=== PATIENT | female | born 2000 | race Caucasian/White ===

== ENCOUNTER 2022-12-01 19:48 | Emergency (ER) | payer OTHER ==
[~2022-12-01] VITALS: Ht 152.4 cm; Wt 50.7 kg
[2022-12-01 19:50] VITALS: BP 117/72; TEMP 98.8; O2SAT 98
[2022-12-01 20:54] LABS: BASO % 0.4 % (0.0-1.0); EOS # 0.1 10^3/uL (0.0-0.5); EOS % 0.9 % (0.0-3.0); HEMATOCRIT 37.9 % (36.0-47.0); HEMOGLOBIN 13.1 g/dl (12.0-15.5); LYMPH # 1.9 10^3/uL (1.5-5.0); MEAN CORPUSCULAR HEMOGLOBIN 30.5 pg (27.0-33.0); MEAN CORPUSCULAR HGB CONC 34.6 g/dl (32.0-36.5); MEAN CORPUSCULAR VOLUME 88.3 fl (80.0-96.0); MONO # 0.5 10^3/uL (0.0-0.8); MONO % 6.7 % (2.0-8.0); NEUTROPHILS % 66.7 % (36.0-66.0); PLATELET COUNT, AUTOMATED 184 10^3/uL (150-450); RED BLOOD COUNT 4.29 10^6/uL (4.00-5.40); WHITE BLOOD COUNT 7.5 10^3/uL (4.0-10.0)
[2022-12-01] MEDS ORDERED: PREN1TAB11 PO (23:00)
[2022-12-01] MEDS ORDERED: HOME MED LIST COMPLETE! XX SCH (23:25)
[2022-12-02 00:55] LABS: BACTERIA, URINE AUTO NEGATIVE (NEGATIVE); RBC, URINE AUTO 1 /HPF (0-3); SQUAMOUS EPITHELIAL CELL UR AU 7 /HPF (0-6); WBC, URINE AUTO 1 /HPF (0-3)
[2022-12-02 01:05] LABS: APPEARANCE, URINE HAZY (CLEAR); BILIRUBIN, URINE AUTO NEGATIVE (NEGATIVE); BLOOD, URINE BLOOD 1+ (NEGATIVE); COLOR, URINE YELLOW (YELLOW); GLUCOSE, URINE (UA) AUTO NEGATIVE (NEGATIVE); KETONE, URINE AUTO NEGATIVE (NEGATIVE); LEUKOCYTE ESTERASE, URINE AUTO TRACE (NEGATIVE); NITRITE, URINE AUTO NEGATIVE (NEGATIVE); PROTEIN, URINE AUTO NEGATIVE (NEGATIVE); UROBILINOGEN, URINE AUTO 0.2 mg/dL (0.0-2.0)
[2022-12-02] MEDS ORDERED: CLEO300C2 PO ×2 (01:14→02:22)
[2022-12-02 01:55] LABS: GC DNA AMPLIFICATION NEGATIVE (NEGATIVE)
[2022-12-02] MEDS ORDERED: CLINDAMYCIN 150MG CAPSULE PO ONE (02:20)
== END 2022-12-02 02:38 | disposition home or self-care (01) ==
LOC: M ED 19:48
DX: O20.0 Threatened abortion (principal); O23.591 Infection of other part of genital tract in pregnancy, first trimester; Z3A.10 10 weeks gestation of pregnancy

== ENCOUNTER 2023-05-15 22:14 | Outpatient (CLI) | payer OTHER ==
[~2023-05-15] VITALS: Ht 152.4 cm; Wt 66.0 kg
[~2023-05-15 22:14] MED LIST: CLEO300C2 PO; PREN1TAB11 PO
[2023-05-15 22:33] VITALS: BP 121/65
== END 2023-05-15 23:47 | disposition home or self-care (01) ==
LOC: M LDO 22:14
PROVIDERS: ATTEND Obstetrics & Gynecology
DX: O36.8130 Decreased fetal movements, third trimester, not applicable or unspecified (principal); Z3A.33 33 weeks gestation of pregnancy
CPT/HCPCS: 59025; G0463

== ENCOUNTER 2023-06-23 02:04 | Inpatient (IN) | payer OTHER ==
[~2023-06-23] VITALS: Ht 152.4 cm; Wt 69.4 kg
[2023-06-23] VITALS (35 sets, daily range): BP systolic 92–178; BP diastolic 50–79; TEMP 98; O2SAT 98–100
[2023-06-23] MEDS ORDERED: ACET325C5 PO (02:20)
[2023-06-23] MEDS ORDERED: VALA500T5 PO (02:44)
[2023-06-23] MEDS ORDERED: HOME MED LIST COMPLETE! XX SCH (02:45)
[2023-06-23] MEDS ORDERED: LR 1,000 ML IV ONE (04:46)
[2023-06-23] MEDS ORDERED: PROMETHAZINE 25MG/ML 1ML VIAL IV ONE (06:00)
[2023-06-23] MEDS ORDERED: BUTORPHANOL 2 MG/ML 1ML VIAL IV ONE (06:00)
[2023-06-23] MEDS ORDERED: LACTATED RINGER'S 1000 ML IV STA (09:06)
[2023-06-23] MEDS ORDERED: OXYTOCIN INJ 10UNITS/ML 1ML VIAL IM PRN (09:10)
[2023-06-23] MEDS ORDERED: TRANEXAMIC ACID INJection 1,000 MG in NS 100 ML IV PRN (09:10)
[2023-06-23] MEDS ORDERED: LIDOCAINE 1% MDV 20ML VIAL INFIL PRN (09:10)
[2023-06-23] MEDS ORDERED: METHYLERGONOVINE MALEATE 0.2MG/ML 1ML VIAL IM PRN (09:10)
[2023-06-23] MEDS ORDERED: LR 1,000 ML IV SCH ×2 (09:10→16:50)
[2023-06-23] MEDS ORDERED: CARBOPROST TROMETHAMINE 250 MCG/ML AMP IM PRN (09:10)
[2023-06-23] MEDS ORDERED: OXYTOCIN DRIP 30 UNITS in IV 1 EA IV PRN ×6 (09:10)
[2023-06-23] MEDS ORDERED: EPIDURAL/PCA KEYS XX PRN (09:20)
[2023-06-23] MEDS ORDERED: ONDANSETRON 4MG 2ML VIAL IV PRN (09:20)
[2023-06-23] MEDS ORDERED: FENTANYL/ROPIVACAINE/NACL BAG 100 ML EPIDURAL SCH (09:20)
[2023-06-23] MEDS ORDERED: NALOXONE INJ 0.4MG/1ML VIAL IV PRN (09:20)
[2023-06-23] MEDS ORDERED: LR 500 ML IV PRN (09:20)
[2023-06-23] MEDS ORDERED: diphenhydrAMINE 50MG/ML VIAL IV PRN (09:20)
[2023-06-23] MEDS ORDERED: ePHEDrine SULFATE 25 MG/5 ML(5MG/ML) SYRINGE IVP PRN (09:20)
[2023-06-23 09:21] LABS: HEMATOCRIT 38.9 % (36.0-47.0); HEMOGLOBIN 13.4 g/dl (12.0-15.5); MEAN CORPUSCULAR HEMOGLOBIN 31.2 pg (27.0-33.0); MEAN CORPUSCULAR HGB CONC 34.4 g/dl (32.0-36.5); MEAN CORPUSCULAR VOLUME 90.5 fl (80.0-96.0); PLATELET COUNT, AUTOMATED 162 10^3/uL (150-450)
[2023-06-23 16:36] LABS: CORD GAS ABE A -9.3; CORD GAS HCO3 A 20.6 MMOL/L; CORD GAS O2 SAT A 58.5 %; CORD GAS PCO2 A 61.7 mmHg; CORD GAS PH A 7.141 UNITS; CORD GAS PO2 A 29.1 mmHg; CORD GAS SBC A 16.3 MMOL/L; CORD GAS TCO2 A 22.5 MMOL/L
[2023-06-23] MEDS ORDERED: IBUPROFEN 600MG TAB PO PRN (16:50)
[2023-06-23] MEDS ORDERED: ACETAMINOPHEN TAB 650MG DOSE (2X325MG) PO PRN (16:50)
[2023-06-23] MEDS ORDERED: METHYLERGONOVINE MALEATE 0.2 MG TAB PO PRN (16:50)
[2023-06-23] MEDS ORDERED: ACETAMINOPHEN 500 MG TAB PO PRN (16:50)
[2023-06-23] MEDS ORDERED: METOCLOPRAMIDE INJ 10MG/2ML VIAL IV PRN (16:50)
[2023-06-23] MEDS ORDERED: OXYTOCIN DRIP 30 UNITS in IV 1 EA IV SCH ×4 (16:50)
[2023-06-23] MEDS ORDERED: MOM 30ML SUSPENSION UDC PO PRN (16:50)
[2023-06-23] MEDS ORDERED: RHOGAM 300MCG (1500IU) INJ IM SCH (16:50)
[2023-06-23] MEDS ORDERED: DIBUCAINE 1% OINTMENT 30GM TOP PRN (16:50)
[2023-06-23] MEDS: IBUPROFEN 800 MG TAB PO PRN (21:13)
[2023-06-24 06:05] VITALS: BP 106/53; O2SAT 98
[2023-06-24] MEDS: DOCUSATE SODIUM 100MG CAPSULE PO PRN ×2 (08:15→18:25)
[2023-06-24] MEDS: PRENATAL VITAMINS CHEWABLE TABLET PO SCH (08:16)
[2023-06-24] MEDS ORDERED: PRENATAL VITAMINS CHEWABLE TABLET PO SCH (09:00)
[2023-06-24 17:37] VITALS: BP 100/55
[2023-06-24] MEDS: IBUPROFEN 800 MG TAB PO PRN (18:23)
[2023-06-25 06:00] VITALS: BP 103/53; O2SAT 99
[2023-06-25] MEDS: PRENATAL VITAMINS CHEWABLE TABLET PO SCH (07:34)
[2023-06-25] MEDS: IBUPROFEN 800 MG TAB PO PRN (07:42)
[2023-06-25] MEDS ORDERED: COLA100C5 PO (08:28)
[2023-06-25] MEDS ORDERED: IBUP-1022 PO (08:28)
[2023-06-25] MEDS ORDERED: ACET1TAB55 PO (08:28)
[2023-06-25] MEDS ORDERED: MEASLES,MUMPS,RUBELLA VACCINE INJ (MMR-II) SC.IMMUN ONE (09:00)
== END 2023-06-25 11:45 | disposition home or self-care (01) | DRG 807 ==
LOC: M LDO 02:04 → M LDI 09:04 → M OBS 18:38
PROVIDERS: ADMIT Obstetrics & Gynecology; ATTEND Obstetrics & Gynecology
PROC: 10E0XZZ Delivery of Products of Conception, External Approach (ICD-10-PCS; principal; 2023-06-23)
PROC: 10907ZC Drainage of Amniotic Fluid, Therapeutic from Products of Conception, Via Natural or Artificial Opening (ICD-10-PCS; 2023-06-23)
PROC: 0HQ9XZZ Repair Perineum Skin, External Approach (ICD-10-PCS; 2023-06-23)
DX: O77.0 Labor and delivery complicated by meconium in amniotic fluid (principal); Z37.0 Single live birth; Z3A.39 39 weeks gestation of pregnancy; O69.81X0 Labor and delivery complicated by cord around neck, without compression, not applicable or unspecified; O70.0 First degree perineal laceration during delivery

== ENCOUNTER 2023-08-15 18:47 | Emergency (ER) | payer OTHER ==
[~2023-08-15] VITALS: Ht 152.4 cm; Wt 58.6 kg
[~2023-08-15 18:47] MED LIST changes: +ACET1TAB55 PO; +ACET325C5 PO; +COLA100C5 PO; +IBUP-1022 PO; +VALA500T5 PO
[2023-08-15] MEDS ORDERED: SERT50TA29 (18:55)
[2023-08-15 19:58] LABS: BASO % 0.2 % (0.0-1.0); EOS % 0.8 % (0.0-3.0); HEMATOCRIT 40.4 % (36.0-47.0); HEMOGLOBIN 13.9 g/dl (12.0-15.5); LYMPH % 37.7 % (24.0-44.0); MEAN CORPUSCULAR HEMOGLOBIN 29.8 pg (27.0-33.0); MEAN CORPUSCULAR HGB CONC 34.4 g/dl (32.0-36.5); MEAN CORPUSCULAR VOLUME 86.7 fl (80.0-96.0); MONO # 0.4 10^3/uL (0.0-0.8); MONO % 6.7 % (2.0-8.0); NEUTROPHILS # 2.9 10^3/uL (1.5-8.5); NEUTROPHILS % 54.4 % (36.0-66.0); PLATELET COUNT, AUTOMATED 208 10^3/uL (150-450); RED BLOOD COUNT 4.66 10^6/uL (4.00-5.40); WHITE BLOOD COUNT 5.2 10^3/uL (4.0-10.0)
[2023-08-15 20:10] LABS: INR 1.04; PARTIAL THROMBOPLASTIN TIME 32.1 SECONDS (24.8-34.2); PROTHROMBIN TIME 13.2 SECONDS (12.5-14.5)
[2023-08-15 20:35] VITALS: BP 119/71; TEMP 97.6; O2SAT 96
[2023-08-16 00:34] LABS: URINE PREG TEST NEGATIVE (NEGATIVE)
[2023-08-16] MEDS ORDERED: MACR100C43 PO (00:59)
== END 2023-08-16 01:16 | disposition home or self-care (01) ==
LOC: M ED 18:47
DX: N93.8 Other specified abnormal uterine and vaginal bleeding (principal); N39.0 Urinary tract infection, site not specified